=== PATIENT | female | born 1995 | race Caucasian/White ===

== ENCOUNTER 2021-06-25 18:50 | Inpatient (IN) | payer SELFPAY, OTHER ==
[2021-06-25] VITALS (12 sets, daily range): BP systolic 102–146; BP diastolic 34–101; PULSE 66–93; RESP 14–19; TEMP 36.1–36.9; O2SAT 97–100; BMI 34.2
--- NOTE | 2021-06-25 19:10 | PCM.HP.BLA ---
History and Physical Date of Admission: 06/25/21 Chief complaint: Contractions, breech History of present illness: 26-year-old G2, P1 at 40 weeks and 6 days with JENIFER: 06/19/2021 by LMP arrives with wrapper layer and examiner soft work laboring with wrapper layer and examiner soft work and found to be breech and 5 cm with bulging bag. Denies headache, visual changes, chest pain, shortness of breath, nausea vomiting. Patient states good movement. Obstetric history: G1: Term G2: Current Past medical history: None Past surgical history: Tonsil and adenoids, cyst removal of sacrum Medications: None Allergies: None Social history: Denies smoking, alcohol use, drug use Family history: Denies history of DVT or PE Review of systems: Besides above pertinent positives a full review systems was performed and found to be negative Physical exam: Vitals: Pending General: Normal-appearing no acute distress HEENT: Normocephalic atraumatic no cervical of adenopathy Cardiac/respiratory: No use of accessory muscles, nonlabored breathing Abdomen: Soft, nontender, gravid Extremities: No peripheral edema normal peripheral pulses Psych: Normal affect and demeanor nonpressured speech Bedside ultrasound: Reveals footling breech presentation Assessment plan: 26-year-old G2, P1 at 40 weeks and 6 days arrives after laboring with wrapper layer and examiner soft work found to be breech. Bedside ultrasound confirmed breech presentation, footling. After chart review confirmed JENIFER by LMP and early ultrasound by wrapper layer and examiner soft work. Official GBS negative lab work noted, all other lab work unofficial A positive blood type. For labs now. In need of primary section for breech, educated patient on findings on ultrasound and risk of footling breech with labor. Patient understands the risk of the procedure include but are not limited to visceral or vascular injury, prolonged hospitalization, blood loss and need for transfusion, reoperation. Patient state understanding and wished to proceed. All questions were answered. For primary now, 2 g Ancef and 500 mg of azithromycin. Anesthesia and FILLING MACHINE SET UP MECHANIC called. Updated team assistant on patient.
[2021-06-25] MEDS: Cefazolin 2 GM in 0.9% Normal Saline 100 ML IV (19:17)
[2021-06-25 19:47] LABS: Absolute Lymphocyte Count 1.85 X10^3/uL (0.83-4.51); Absolute Neutrophil Count 8.1 X10^3/uL (2.0-7.7); Basophil# 0.03 X10^3/uL; Basophil% 0.3 % (0-1); Eosinophil# 0.05 X10^3/uL; Eosinophils% 0.5 % (0-5); Hematocrit 41.2 % (37-47); Hemoglobin 14.5 g/dL (12.0-15.0); Lymphocyte # 1.85 X10^3/ul (0.83-4.51); Lymphocyte % 17.3 % (19-41); Mean Corp Hgb Conc 35.2 g/dL (32-36); Mean Corpuscular Hgb 32.6 pg (27.0-32.0); Mean Corpuscular Volume 92.6 fL (81-99); Mean Platelet Vol. 10.7 fl (6.2-12.0); Monocyte# 0.61 X10^3/uL; Monocyte% 5.7 % (0-10); NRBC Flagged by Analyzer 0 % (0-5); Neutrophil # 8.11 X10^3/uL (2.7-7.7); Neutrophil % 75.8 % (47-70); Platelet Count 206 K/mm3 (150-450); RBC Distribution Width CV 12.6 % (11.6-14.6); RBC Distribution Width SD 43.1 fl (35.1-43.9); Red Blood Count 4.45 M/mm3 (4.2-5.4); White Blood Count 10.7 K/mm3 (4.4-11.0)
--- NOTE | 2021-06-25 20:24 | OP.PCM_ITS ---
Details Operative Information Date of Procedure: 06/25/21 Pre-Operative Diagnosis: Labor, term, breech Post-Operative Diagnosis: Labor, term, breech blast setter #1: Amira Cavazos Findings Description of Procedure: Procedure: Primary low transverse section Via Pfannenstiel incision Surgeon: Ankush Montilla MD Anesthesia: Spinal EBL: 600 cc IV fluids: 950 cc Urine output: 100 cc Complications: None Specimen: None Findings: Male in footling breech presentation, Apgars 8/9. 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 In need of primary section for breech. Patient understands the risk of the procedure include but are not limited to visceral or vascular injury, prolonged hospitalization, blood loss and need for transfusion, reoperation. Patient state understanding and wished to proceed. All questions were answered and consent was signed. Procedure: Patient was brought back to the OR where spinal anesthesia was found to be adequate. 2 g of Ancef and 500 mg of azithromycin were given for infection prophylaxis. Patient was prepared and draped in a supine position with leftward tilt. A Pfannenstiel incision was made the skin with a scalpel. The incision was carried down to the fascia with scalpel. The fascia was excised and extended laterally. Inferior aspect of the fascia was grasped with a clamp and the underlying rectus and pyramidalis muscle were dissected off sharply with Duckworth scissors. In a similar fashion the superior aspect of the fascia was grasped and the underlying rectus muscle was dissected off sharply. Preperitoneal fatty tissue was noted and peritoneum was entered bluntly. Peritoneum was extended superiorly and inferiorly with good visualization of the bladder. Bladder blade was inserted and vesicouterine peritoneum was identified. Low transverse hysterotomy was made. Hand was placed into the incision, bladder blade was removed, and standard breech delivery was performed with ease. Cord was cut and clamped and baby was handed off to nursing. Placenta was delivered via cord traction and fundal massage. IV oxytocin was initiated to facilitate uterine contractions. Uterus was exteriorized and wiped out with dry laparotomy sponge in order to remove remaining placental membranes. Uterus was closed in a continuous running fashion. Second layer was performed. Good hemostasis was noted. Uterus was placed back into the abdominal cavity and reinspected, good hemostasis was noted. Rectus muscle was reapproximated with horizontal mattress sutures. Fascia was closed in a continuous running fashion. Skin was closed in a subcuticular fashion. All counts were correct x2. Patient tolerated the procedure well and was brought to recovery in stable condition.
[2021-06-25] MEDS: Oxytocin 30 units/NS 500 ml 30 UNITS/500 ML IV.SOLN 167 UNITS IV (20:40)
[2021-06-25 20:56] LABS: HIV - WCH Non-Reactive (Nonreactive); Hepatitis B Surface Antigen Non-Reactive (Nonreactive); Hepatitis C Antibody Non-Reactive (Nonreactive)
--- NOTE | 2021-06-25 21:45 | NURSING ---
pt came staight to OR for c/s for breech. initial vitals obtained per dr burnham in OR.
[2021-06-25] MEDS: Methylergonovine 0.2 MG/ML Ampul IM (21:53)
--- NOTE | 2021-06-25 21:58 | NURSING ---
brando care provided. this RN to save first pad in case it needs weighed later. warm bath wipes used. pt tolerated well.
[2021-06-25] MEDS: Acetaminophen 500 MG Tablet 1000 MG PO (22:47)
[2021-06-25] MEDS: Ketorolac 30 MG/ML Syringe IV (22:47)
[2021-06-25] MEDS: 0.9% Saline Lock 10 ML Syringe IV (22:47)
[2021-06-25] MEDS: Lactated Ringers 1,000 ML 100 ML IV (23:46)
--- NOTE | 2021-06-25 23:46 | NURSING ---
report given to lwmary RN. that rn to assume care of couplet at this time.
[2021-06-26] VITALS (9 sets, daily range): BP systolic 98–124; BP diastolic 55–67; PULSE 72–87; RESP 16; TEMP 36.6–37.6; O2SAT 97–100
[2021-06-26] MEDS: Acetaminophen 500 MG Tablet 1000 MG PO ×3 (04:37→23:55)
[2021-06-26] MEDS: Ketorolac 30 MG/ML Syringe IV ×3 (04:37→17:28)
[2021-06-26 05:39] LABS: Hematocrit 31.3 % (37-47); Hemoglobin 10.7 g/dL (12.0-15.0); Mean Corp Hgb Conc 34.2 g/dL (32-36); Mean Corpuscular Hgb 32.3 pg (27.0-32.0); Mean Corpuscular Volume 94.6 fL (81-99); Mean Platelet Vol. 10.3 fl (6.2-12.0); Platelet Count 157 K/mm3 (150-450); RBC Distribution Width CV 12.8 % (11.6-14.6); RBC Distribution Width SD 43.9 fl (35.1-43.9); Red Blood Count 3.31 M/mm3 (4.2-5.4); White Blood Count 13.9 K/mm3 (4.4-11.0)
--- NOTE | 2021-06-26 08:08 | PCM.PN.OB ---
Subjective Subjective No overnight complaints. Pain well controlled. Objective Data Objective Data Vital Signs: Vital Signs Temp Pulse Resp BP Pulse Ox 97.8 F 87 16 98/55 L 97 06/26/21 05:05 06/26/21 06:56 06/26/21 06:56 06/26/21 05:05 06/26/21 06:56 Oxygen Delivery Method Room Air Weight: 175 lb Body Mass Index (BMI) 34.2 Intake & Output: Intake and Output for Last 24 Hours 06/24/21 06/25/21 06/26/21 23:59 23:59 23:59 Intake Total 1105 / 1105 556.67 / 556.67 Output Total 500 / 500 1000 / 1000 Balance 605 / 605 -443.33 / -443.33 Lab / Micro Data Result Diagrams: 06/26/21 05:28 Labs: Laboratory Results - last 24 hr 06/25/21 19:00: WBC 10.7, RBC 4.45, Hgb 14.5, Hct 41.2, MCV 92.6, MCH 32.6 H, MCHC 35.2, RDW Std Deviation 43.1, RDW Coeff of Fredis 12.6, Plt Count 206, MPV 10.7, Immature Gran % (Auto) 0.400, Neut % (Auto) 75.8 H, Lymph % (Auto) 17.3 L, Perry % (Auto) 5.7, Eos % (Auto) 0.5, Baso % (Auto) 0.3, Absolute Neuts (auto) 8.1 H, Absolute Lymphs (auto) 1.85, Nucleated RBC % 0 06/25/21 19:00: Blood Type A POSITIVE, Antibody Screen NEGATIVE 06/25/21 19:00: Hep Bs Antigen Non-Reactive, Hepatitis C Antibody Non-Reactive, HIV 1&2 Antibody Non-Reactive 06/26/21 05:28: WBC 13.9 H, RBC 3.31 L, Hgb 10.7 L, Hct 31.3 L, MCV 94.6, MCH 32.3 H, MCHC 34.2, RDW Std Deviation 43.9, RDW Coeff of Fredis 12.8, Plt Count 157, MPV 10.3 Physical Exam Const alert, oriented x3, no apparent distress, average body habitus, healthy appearing and well nourished HEENT normocephalic and moist oral mucous membranes Head and Scalp: atraumatic Face and Sinus: normal facial exam Eyes PERRL Neck full ROM Resp normal respiratory effort, no retractions and no use of accessory muscles GI normal to inspection, nondistended, normoactive bowel sounds GI Narrative: Bandage clean dry and intact Extremity normal to inspection, full ROM and no clubbing, cyanosis or edema Psych mental status grossly normal, affect normal, speech normal and activity/motor behavior normal Assessment & Plan (1) delivery delivered: PLAN: Postop day 1 status post primary section for breech. Breast-feeding. Pain well controlled. Likely discharge home tomorrow
[2021-06-26] MEDS: Enoxaparin 40 MG/0.4 ML Syringe SC (08:28)
[2021-06-26 08:44] LABS: Rubella IgG Non-Reactive (Nonreactive); Syphilis Antibodies Non-reactive
--- NOTE | 2021-06-26 10:47 | NURSING ---
This deputy director of nursing was present for the morning assessment and completed with student. Meds were given with this instructor and patient ambulated to bathroom, linens changed.
[2021-06-26] MEDS: Senna/Docusate Sodium 1 Tablet PO (11:03)
[2021-06-26] MEDS: 0.9% Saline Lock 10 ML Syringe IV ×2 (11:04→17:29)
--- NOTE | 2021-06-26 11:55 | NURSING ---
11:20am Pt. up to bathroom to void. About 2in. of blood clot noted with stringy appearance. Pt. instructed on calling nurse if more clots noticed. Fundus firmed at umbilicus when returned to bed. Pt. instructed to urinate frequently at least every 2 hours.
--- NOTE | 2021-06-26 15:29 | NURSING ---
THIS SUPERVISOR FABRICATION DEPARTMENT REVIEWED THE DOCUMENTATION COMPLETED BY THE STUDENT NURSE AND IT IS COMPLETE.
[2021-06-26] MEDS: Ibuprofen 600 MG Tablet PO (23:55)
[2021-06-27 03:00] VITALS: BP 129/57; PULSE 82; RESP 16; TEMP 36.3; O2SAT 98
[2021-06-27] MEDS: Ibuprofen 600 MG Tablet PO (05:27)
[2021-06-27] MEDS: Acetaminophen 500 MG Tablet 1000 MG PO (05:27)
[2021-06-27 07:31] VITALS: BP 105/69; PULSE 70; RESP 16; TEMP 36.4; O2SAT 98
--- NOTE | 2021-06-27 09:08 | PCM.DC ---
Discharge Instructions Diet Discharge Diet: No restrictions Activity Discharge Activity: Return to Normal Activity and May Shower May resume sexual activity in: 4-6 weeks Lifting Restrictions: 10 lb Dressing / Incision Call your doctor if you observe: Using more than 1 pad per hour, Shortness of breath, Chest pain, Calf discomfort, Uncontrolled pain and - (Persistent or severe headache) Suture Line Care: Avoid Pulling/Pushing Remove Dressing in: 4 days Cleanse incision/area with: Soap & Water Follow Up Care Please Follow Up With: Ankush Montilla MD When: 2 weeks Test Results: Test results from this visit will be discussed in further detail at your follow-up appointment, if applicable. Discharge Plan Admission Admit Date/Time: 06/25/21 18:50 Primary Reason for Your Visit: delivery Attending Provider: Ankush Montilla Primary Care Provider: Care Physician,Fabi Primary Instructions Patient Instructions: Depression Discharge Orders/Prescriptions Prescriptions: New ibuprofen 600 mg Tablet 600 mg PO Q8H PRN PRN (Reason: fever) Qty: 30 RF: 0 oxycodone 5 mg Tablet 5 mg PO Q6H PRN PRN (Reason: Pain Score 4-10) 7 Days Qty: 20 RF: 0 Disposition Disposition (needs filled in before D/C Order can be placed): Home, Self Care
[2021-06-27] MEDS: Senna/Docusate Sodium 1 Tablet PO (09:24)
[2021-06-27] MEDS: Enoxaparin 40 MG/0.4 ML Syringe SC (09:24)
--- NOTE | 2021-06-27 09:40 | PCM.DC.SUM ---
Providers Date of Admission: 06/25/21 Primary Care Physician: Fabi Primary Care Phys Reason For Visit: PRIMARY C SECTION Diagnosis Discharge Diagnosis (1) delivery delivered: Status: Acute Code(s): O82 - Encounter for delivery without indication Medications at Discharge Home Medications ibuprofen 600 mg PO Q8H PRN PRN #30 tab 06/27/21 oxycodone 5 mg PO Q6H PRN PRN 7 Days #20 tab 06/27/21 Hospital Course Operations section Summary of Care Provided Hospital Course: 26yo admitted at 40 6/7 weeks gestation following planned home delivery with concern for breech presentation at 5cm. She underwent an uncomplicated section with delivery of male infant. Her postop course was unremarkable. She was and discharged to home on postop day #2. Physical Exam Narrative Pain is manageable, denies chest pain, shortness of breath, heavy lochia. She is voiding without difficulty and passing flatus, tolerates PO. Const alert, oriented x3 and no apparent distress Resp normal respiratory effort, normal air movement and clear to auscultation bilaterally Cardio regular rate, regular rhythm, S1 normal heart sound and S2 normal heart sound GI normal to inspection, nondistended, normoactive bowel sounds, soft to palpation, non-tender and non-distended GI Narrative: incisional dressing c/d/i Manual OB Exam: other lochia scant Uterus Palpation: uterus fundus firm Extremity no calf tenderness and no pedal edema Weight / BMI Weight Weight: 79.379 kg Body Mass Index (BMI) 34.2 ABG / Lab / Microbiology Data Result Diagrams: 06/26/21 05:28 D/C Instructions Discharge Diet: No restrictions May resume sexual activity in: 4-6 weeks Call your doctor if you observe: Using more than 1 pad per hour, Shortness of breath, Chest pain, Calf discomfort, Uncontrolled pain and - (Persistent or severe headache) Suture Line Care: Avoid Pulling/Pushing Cleanse incision/area with: Soap & Water Please Follow Up With: Ankush Montilla MD When: 2 weeks Meaningful Use Info Meaningful Use Diagnoses (Choose all that apply): None applicable Discharge Plan Admission Admit Date/Time: 06/25/21 18:50 Primary Reason for Your Visit: delivery Attending Provider: Ankush Montilla Primary Care Provider: Care Physician,No Primary Instructions Patient Instructions: Depression, After a Discharge Orders/Prescriptions Prescriptions: New ibuprofen 600 mg Tablet 600 mg PO Q8H PRN PRN (Reason: fever) Qty: 30 RF: 0 oxycodone 5 mg Tablet 5 mg PO Q6H PRN PRN (Reason: Pain Score 4-10) 7 Days Qty: 20 RF: 0 Disposition Disposition (needs filled in before D/C Order can be placed): Home, Self Care
== END 2021-06-27 11:10 | disposition home or self-care (01) | DRG 788 ==
PROVIDERS: Admitting Provider Obstetrics & Gynecology; Visit Provider Obstetrics & Gynecology
DX: O32.8XX0 Maternal care for other malpresentation of fetus, not applicable or unspecified (principal); Z3A.40 40 weeks gestation of pregnancy; Z37.0 Single live birth
CPT/HCPCS: 59050; 85025; 85027; 86703; 86762; 86780; 86803; 86850; 86900; 86901; 87340; 99218; 99251; J7120; A4216; G0378; G0463; J2405

== ENCOUNTER → 2022-04-08 | Outpatient (CLI) | payer OTHER, SELFPAY ==
[2022-04-08 16:40] LABS: Absolute Lymphocyte Count 2.18 X10^3/uL (0.83-4.51); Basophil# 0.04 X10^3/uL; Basophil% 0.5 % (0-1); Eosinophil# 0.14 X10^3/uL; Eosinophils% 1.8 % (0-5); Hematocrit 35.5 % (37-47); Hemoglobin 12.5 g/dL (12.0-15.0); Lymphocyte # 2.18 X10^3/ul (0.83-4.51); Lymphocyte % 27.9 % (19-41); Mean Corp Hgb Conc 35.2 g/dL (32-36); Mean Corpuscular Hgb 31.6 pg (27.0-32.0); Mean Corpuscular Volume 89.9 fL (81-99); Mean Platelet Vol. 9.6 fl (6.2-12.0); Monocyte# 0.42 X10^3/uL; Monocyte% 5.4 % (0-10); NRBC Flagged by Analyzer 0 % (0-5); Neutrophil # 5.01 X10^3/uL (2.7-7.7); Platelet Count 210 K/mm3 (150-450); RBC Distribution Width CV 12.6 % (11.6-14.6); RBC Distribution Width SD 41.4 fl (35.1-43.9); Red Blood Count 3.95 M/mm3 (4.2-5.4); White Blood Count 7.8 K/mm3 (4.4-11.0)
[2022-04-09 10:23] LABS: HIV - WCH Non-Reactive (Nonreactive); Hepatitis B Surface Antigen Non-Reactive (Nonreactive); Hepatitis C Antibody Non-Reactive (Nonreactive); Rubella IgG Non-Reactive (Nonreactive); Syphilis Antibodies Non-reactive
[2022-04-10 15:49] LABS: V-Zoster IgG (Immunity) 996 index (Immune >165)
[2022-04-10 22:06] LABS: Chlamydia By Nucleic Acid AMP Negative (Negative)
[2022-04-11 07:46] LABS: Gonococcus By Nucleic Acid AMP Negative (Negative)
[2022-04-30 16:22] LABS: HPV Reflexed? NOT INDICATED
== END | disposition home or self-care (01) ==
LOC: WOBLAB 14:50
PROVIDERS: Visit Provider Obstetrics & Gynecology
DX: Z34.82 Encounter for supervision of other normal pregnancy, second trimester (principal); Z11.3 Encounter for screening for infections with a predominantly sexual mode of transmission; Z12.4 Encounter for screening for malignant neoplasm of cervix
CPT/HCPCS: 36415; 85025; 86703; 86762; 86780; 86787; 86803; 87086; 87088; 87340; 87491; 87591; 88175; G0145

== ENCOUNTER 2022-07-01 09:45 | Outpatient (CLI) | payer OTHER, SELFPAY ==
[2022-07-01 10:13] LABS: Absolute Neutrophil Count 5.6 X10^3/uL (2.0-7.7); Basophil# 0.02 X10^3/uL; Basophil% 0.3 % (0-1); Eosinophil# 0.11 X10^3/uL; Eosinophils% 1.4 % (0-5); Hematocrit 34.6 % (37-47); Hemoglobin 11.7 g/dL (12.0-15.0); Mean Corp Hgb Conc 33.8 g/dL (32-36); Mean Corpuscular Volume 94.5 fL (81-99); Mean Platelet Vol. 9.6 fl (6.2-12.0); Monocyte# 0.56 X10^3/uL; Monocyte% 7.2 % (0-10); NRBC Flagged by Analyzer 0 % (0-5); Neutrophil # 5.64 X10^3/uL (2.7-7.7); Neutrophil % 72.7 % (47-70); Platelet Count 205 K/mm3 (150-450); RBC Distribution Width CV 13.2 % (11.6-14.6); RBC Distribution Width SD 45.1 fl (35.1-43.9); Red Blood Count 3.66 M/mm3 (4.2-5.4); White Blood Count 7.8 K/mm3 (4.4-11.0)
[2022-07-01 10:32] LABS: Glucose Challenge Gest 1H 50g 89 mg/dL (70-140)
== END 2022-07-01 23:59 | disposition home or self-care (01) ==
PROVIDERS: Visit Provider Obstetrics & Gynecology
DX: Z34.82 Encounter for supervision of other normal pregnancy, second trimester (principal)
CPT/HCPCS: 36415; 82950; 85025

== ENCOUNTER → 2022-09-10 | Outpatient (CLI) | payer OTHER, SELFPAY ==
[2022-09-10 12:16] LABS: Absolute Lymphocyte Count 1.51 X10^3/uL (0.83-4.51); Absolute Neutrophil Count 4.8 X10^3/uL (2.0-7.7); Basophil# 0.03 X10^3/uL; Basophil% 0.4 % (0-1); Eosinophils% 1.4 % (0-5); Hematocrit 35.3 % (37-47); Hemoglobin 11.8 g/dL (12.0-15.0); Lymphocyte # 1.51 X10^3/ul (0.83-4.51); Lymphocyte % 21.6 % (19-41); Mean Corp Hgb Conc 33.4 g/dL (32-36); Mean Corpuscular Hgb 30.8 pg (27.0-32.0); Mean Corpuscular Volume 92.2 fL (81-99); Mean Platelet Vol. 10.5 fl (6.2-12.0); Monocyte# 0.57 X10^3/uL; Monocyte% 8.2 % (0-10); NRBC Flagged by Analyzer 0 % (0-5); Neutrophil # 4.75 X10^3/uL (2.7-7.7); Neutrophil % 68.1 % (47-70); Platelet Count 199 K/mm3 (150-450); RBC Distribution Width CV 13.2 % (11.6-14.6); RBC Distribution Width SD 44.4 fl (35.1-43.9); Red Blood Count 3.83 M/mm3 (4.2-5.4)
[2022-09-10 12:47] LABS: Syphilis Antibodies Non-reactive
== END | disposition home or self-care (01) ==
PROVIDERS: Visit Provider Obstetrics & Gynecology
DX: Z34.83 Encounter for supervision of other normal pregnancy, third trimester (principal); Z36.85 Encounter for antenatal screening for Streptococcus B
CPT/HCPCS: 36415; 85025; 86780; 87081

== ENCOUNTER 2022-10-11 23:55 | Inpatient (IN) | payer SELFPAY, OTHER ==
[2022-10-11 23:18] VITALS: BMI 32.6
[2022-10-11 23:27] VITALS: BP 123/73; PULSE 74
[2022-10-11 23:43] VITALS: TEMP 36.5
[2022-10-12] VITALS (27 sets, daily range): BP systolic 105–135; BP diastolic 55–73; PULSE 56–96; RESP 15–16; TEMP 36.3–37.4; O2SAT 94–99
[2022-10-12] MEDS: Lactated Ringers 1,000 ML 50 ML IV (00:05)
[2022-10-12 00:33] LABS: Absolute Lymphocyte Count 2.03 X10^3/uL (0.83-4.51); Absolute Neutrophil Count 4.1 X10^3/uL (2.0-7.7); Basophil# 0.01 X10^3/uL; Basophil% 0.1 % (0-1); Eosinophil# 0.04 X10^3/uL; Eosinophils% 0.6 % (0-5); Hematocrit 34.4 % (37-47); Hemoglobin 11.9 g/dL (12.0-15.0); Lymphocyte # 2.03 X10^3/ul (0.83-4.51); Lymphocyte % 30.2 % (19-41); Mean Corp Hgb Conc 34.6 g/dL (32-36); Mean Corpuscular Hgb 31.2 pg (27.0-32.0); Mean Corpuscular Volume 90.3 fL (81-99); Mean Platelet Vol. 11.2 fl (6.2-12.0); Monocyte# 0.53 X10^3/uL; Monocyte% 7.9 % (0-10); NRBC Flagged by Analyzer 0 % (0-5); Neutrophil # 4.09 X10^3/uL (2.7-7.7); Neutrophil % 60.9 % (47-70); Platelet Count 185 K/mm3 (150-450); RBC Distribution Width CV 13.2 % (11.6-14.6); RBC Distribution Width SD 42.7 fl (35.1-43.9); Red Blood Count 3.81 M/mm3 (4.2-5.4); White Blood Count 6.7 K/mm3 (4.4-11.0)
[2022-10-12] MEDS: Oxytocin 15 Units/NS 250ml 15 UNITS/250 ML IV.SOLN 83 UNITS IV (03:45)
[2022-10-12] MEDS: Oxytocin 10 UNITS/ML Vial IM (03:45)
--- NOTE | 2022-10-12 04:07 | PCM.HP.BLA ---
History and Physical Date of Admission: 10/11/22 Chief complaint: Contractions History present illness: 27-year-old G3, P2 at 40 weeks and 3 days with JENIFER 10/08/2022 arrives with contractions. Denies headache, visual changes, chest pain, shortness of breath, nausea vomit, right upper quadrant pain. is complicated by history of section desires TOLAC Static history: G1: 42-week G2: 40-week primary section for breech G3: Current Past medical history: None Medications: vitamin Past surgical history: section, tonsils and adenoids Allergies: No known drug allergies Social history: Denies smoking, alcohol use, drug use Family history: Denies history DVT or PE Review of systems: Besides above pertinent positives a full review of systems was performed and found to be negative Physical exam: Vitals: Blood pressure 135/65 pulse 67 General: Normal-appearing no acute distress HEENT: Normocephalic/atraumatic no cervical lymphadenopathy Cardiac/respiratory: No use of accessory muscles, nonlabored breathing Abdomen: Soft, nontender, gravid Extremities: No peripheral edema normal peripheral pulses Psych: Normal affect normal demeanor nonpressured speech Assessment and plan: 27-year-old G3, P2 at 40 weeks and 3 days called by nursing overnight with contractions desires TOLAC. Patient understands risk of TOLAC. Admit labor and delivery, CEFM. GBS negative
--- NOTE | 2022-10-12 04:10 | EX.PCM.OBRPT ---
Vaginal Delivery Findings Description of Procedure: Called by nursing for delivery. Patient feeling pressure. Cervical exam 7/80/0 station. Patient using nitrous for pain. Repeat cervical exam 10/100/+2. Normal spontaneous vaginal delivery of a viable male , vertex DAVIDA. Head and shoulders delivered with ease. Cord clamped and cut. Baby handed off to patient. Placenta delivered intact via cord traction and fundal massage. IM and IV oxytocin given to initiate uterine contractions. Second-degree midline perineal laceration noted and repaired in typical fashion. EBL 250 cc Apgars 8/9
[2022-10-12] MEDS: Acetaminophen 500 MG Tablet 1000 MG PO (04:45)
--- NOTE | 2022-10-12 04:53 | NURSING ---
Report given to Caitlin WASHINGTON, taking over pt care at this time.
[2022-10-12] MEDS: Ibuprofen 600 MG Tablet PO ×2 (05:29→21:56)
[2022-10-13] VITALS (9 sets, daily range): BP systolic 119–132; BP diastolic 61–71; PULSE 59–85; RESP 15–16; TEMP 36.3–36.8; O2SAT 97–99
--- NOTE | 2022-10-13 08:08 | PCM.PN.OB ---
Subjective Subjective Patient feeling well this morning. Lochia minimal. Breast-feeding. Objective Data Objective Data Vital Signs: Vital Signs Temp Pulse Resp BP Pulse Ox O2 Del Method 97.3 F L 85 15 124/69 H 99 Room Air 10/13/22 04:28 10/13/22 04:29 10/13/22 04:15 10/13/22 04:29 10/13/22 04:28 10/13/22 04:15 Oxygen Delivery Method Room Air Weight: 81 kg Body Mass Index (BMI) 32.6 Intake & Output: Intake and Output for Last 24 Hours 10/11/22 10/12/22 10/13/22 23:59 23:59 23:59 Intake Total 1250 / 1250 Output Total 250 / 250 Balance 1000 / 1000 Lab / Micro Data Attestation: I reviewed the patient's lab results. Result Diagrams: 10/11/22 00:20 Physical Exam Const alert, oriented x3 and no apparent distress HEENT normocephalic Head and Scalp: atraumatic Neck full ROM Resp normal respiratory effort Cardio regular rate GI normal to inspection, nondistended, normoactive bowel sounds GI Narrative: Uterus 2 cm below umbilicus Back/Spine normal ROM Extremity normal to inspection Extremity Narrative: Minimal pedal edema Neuro no focal motor deficits and no sensory deficits noted Psych mental status grossly normal and affect normal Assessment & Plan (1) (vaginal after ): PLAN: day 1 status post successful vaginal after delivery. Patient feeling well. Desires home-going today. Discharge home.
--- NOTE | 2022-10-13 08:13 | DCINST_ITS ---
Discharge Instructions Diet Discharge Diet: No restrictions Activity Discharge Activity: Return to Normal Activity and May Shower May resume sexual activity in: 4-6 weeks Weight Bearing Status: Weight bearing as tolerated Lifting Restrictions: No greater than 25 pounds Dressing / Incision Call your doctor if you observe: Fever of 101 or Higher, Change in Color, Inability to urinate, Using more than 1 pad per hour, Shortness of breath, Dizziness, Swelling in the ankles, Chest pain and Calf discomfort Follow Up Care Please Follow Up With: Ankush Montilla MD When: 6-week visit Test Results: Test results from this visit will be discussed in further detail at your follow- up appointment, if applicable. Discharge Plan Admission Admit Date/Time: 10/11/22 23:55 Primary Reason for Your Visit: Vaginal Delivery Attending Provider: Ankush Montilla Primary Care Provider: Care Physician,Fabi Primary Discharge Orders/Prescriptions Prescriptions: No Action capsule 1 OTHER 1XD Rx Instructions: takes one capsule daily Referrals / Follow Up: Care Physician,No Primary [Primary Care Provider] - Disposition Disposition (needs filled in before D/C Order can be placed): Home, Self Care
== END 2022-10-13 14:15 | disposition home or self-care (01) | DRG 807 ==
LOC: WPOUT 23:59 → WP 23:59
PROVIDERS: Admitting Provider Obstetrics & Gynecology; Referring Provider Obstetrics & Gynecology; Visit Provider Obstetrics & Gynecology
DX: O34.219 Maternal care for unspecified type scar from previous cesarean delivery (principal); Z37.0 Single live birth; O70.1 Second degree perineal laceration during delivery; Z3A.40 40 weeks gestation of pregnancy; Z87.59 Personal history of other complications of pregnancy, childbirth and the puerperium
CPT/HCPCS: 59025; 59050; 85025; 86850; 86900; 86901; 99221; J7120; G0378